=== PATIENT | male | born 1950 | race Caucasian/White ===

== ENCOUNTER 2024-02-09 09:21 | Emergency (ER) | payer OTHER ==
[2024-02-09 09:29] VITALS: TEMP 98.2; BMI 27.4
[2024-02-09] MEDS ORDERED: FAMOTIDINE 20 MG/50 ML IVPB 20 MG/50 ML MG IVPB ONE (10:43)
[2024-02-09] MEDS ORDERED: ACETAMINOPHEN INJECTION 100 ML IVPB ONE (10:43)
[2024-02-09] MEDS: FAMOTIDINE 20 MG/50 ML IVPB 20 MG/50 ML MG IVPB ONE (10:53)
[2024-02-09] MEDS: SODIUM CHLORIDE 0.9% 500 ML INFUS.BAG IV ONE (10:53)
[2024-02-09] MEDS ORDERED: MAG HYDROX/AL HYDROX/SIMETH 30 ML UNIT-DOSE CUP ONE (11:01)
[2024-02-09] MEDS: ACETAMINOPHEN 1000 MG/100 ML BAG IVPB ONE (11:05)
[2024-02-09] MEDS: MAG HYDROX/AL HYDROX/SIMETH 30 ML UNIT-DOSE CUP PO ONE (11:05)
[2024-02-09 11:13] LABS: BASO % 0.5 % (0-2.0); EOS % 0.7 % (0-4.5); HEMATOCRIT 42.2 % (35.4-49); HEMOGLOBIN 14.1 GM/dL (11.7-16.9); LYMPH % 14.1 % (8-40); MCH 26.5 pg (25.7-33.7); MCHC 33.4 g/dl (32.0-35.9); MEAN CELL VOLUME 79.4 fl (80-96); MEAN PLT VOLUME 8.3 fl (7.5-11.1); MONO % 5.8 % (3.8-10.2); NEUT % 78.9 % (42.8-82.8); PLATELET COUNT 264 10^3/uL (134-434); RBC 5.31 M/mm3 (4.00-5.60); RDW 17.2 % (11.9-15.9); WHITE BLOOD COUNT 6.3 K/mm3 (4.0-10.0)
[2024-02-09 11:17] LABS: POTASSIUM 4.7 mmol/L (3.5-5.1)
[2024-02-09 11:19] LABS: ALBUMIN 3.8 g/dl (3.4-5.0); CALCIUM 9.1 mg/dL (8.5-10.1)
[2024-02-09 11:20] LABS: BLOOD UREA NITROGEN 19.7 mg/dL (7-18); MAGNESIUM 2.2 mg/dL (1.8-2.4)
[2024-02-09 11:24] LABS: BILIRUBIN,TOTAL 0.7 mg/dL (0.2-1); TOT PROT 7.2 g/dl (6.4-8.2)
[2024-02-09 13:12] VITALS: BP 146/103; PULSE 90; RESP 16
[2024-02-09] MEDS ORDERED: SUCRALFATE 1 GM TABLET (FP) ONE (14:52)
[2024-02-09] MEDS: SUCRALFATE 1 GM TABLET (FP) PO ONE (14:54)
[2024-02-09] MEDS: SUCRALFATE 1 GM/10 ML UNIT DOSE CUPS PO ONE (14:54)
== END 2024-02-09 15:04 | disposition home or self-care (01) ==
LOC: JER 09:21
PROC: 3E033GC Introduction of Other Therapeutic Substance into Peripheral Vein, Percutaneous Approach (ICD-10-PCS; principal; 2024-02-09)
PROC: 3E033NZ Introduction of Analgesics, Hypnotics, Sedatives into Peripheral Vein, Percutaneous Approach (ICD-10-PCS; 2024-02-09)
DX: R10.13 Epigastric pain (principal); R06.02 Shortness of breath; R00.0 Tachycardia, unspecified; R07.89 Other chest pain
CPT/HCPCS: 36415; 71045-TC-FY; 74177-TC; 80053; 83690; 83735; 84484; 85025; 93005; 93010; 96365; 96375; 99285-25; J0131; Q9967